=== PATIENT | male | born 1990 | race Caucasian/White ===

== ENCOUNTER 2016-12-02 16:42 | Emergency (ER) | payer BC, OTHER ==
[~2016-12-02] VITALS: Ht 180.3 cm; Wt 71.0 kg
[2016-12-02 16:45] VITALS: Ht 180.3 cm; Wt 71.0 kg
[2016-12-02] MEDS ORDERED: CYCL-319 PO (17:10)
[2016-12-02] MEDS ORDERED: NAPR-260 PO (17:10)
[2016-12-02] MEDS ORDERED: KETOROLAC 30 MG INJ IM STA (17:17)
--- NOTE | 2016-12-02 17:17 | ERD ---
ER Documentation Chief Complaint Date/Time DATE: 12/02/16 TIME: 17:13 Chief Complaint CHRONIC BACK PAIN, HAVING NEW SYMTOMS HPI This patient is a 26-year-old male with past medical history of back pain presenting to the emergency department with acute exacerbation of chronic back pain. The patient states his paraspinal muscles from the C-spine to the L- spine are affected. He was bending over and then stood up too quickly 2 days ago which caused the pain. It was sudden in onset. Pain is been staying constant. No alleviating or exacerbating factors reported. The patient has been taking no medications for relief of symptoms. He denies loss of bowel or bladder function, radiation down the legs, fevers, chills, urinary symptoms, loss of feeling in the lower extremities, or other symptoms. He has been able to ambulate well with no difficulty. ROS All systems reviewed and are negative except as per history of present illness. Medications Home Meds Active Scripts Naproxen* (Naprosyn*) 500 Mg Tablet, 500 MG PO BID Y for PAIN AND/OR INFLAMMATION, #30 TAB Prov:BO BASILIO PA-C 12/02/16 Cyclobenzaprine Hcl* (Cyclobenzaprine Hcl*) 10 Mg Tablet, 10 MG PO TID, #15 TAB Prov:BO BASILIO PA-C 12/02/16 Allergies Allergies: Coded Allergies: Sulfa (Sulfonamide Antibiotics) (Unverified Allergy, Unknown, HIVES, ) PMhx/Soc History of Surgery: No Anesthesia Reaction: No Hx Neurological Disorder: No Hx Respiratory Disorders: No Hx Cardiac Disorders: No Hx Psychiatric Problems: No Hx Miscellaneous Medical Probl: Yes (ADHD , CHRONIC BACK PAIN ) Hx Alcohol Use: Yes Hx Substance Use: Yes (MEDICAL MARIJUANA ) Hx Tobacco Use: Yes Smoking Status: Current some day smoker Physical Exam Vitals Vital Signs Date Time Temp Pulse Resp B/P Pulse Ox O2 Delivery O2 Flow Rate FiO2 12/02/16 16:45 98.0 68 18 134/70 98 Physical Exam Const: Nontoxic, well-appearing male in no acute distress. Head: Atraumatic Eyes: Normal Conjunctiva ENT: Normal External Ears, Nose and Mouth. Neck: Full range of motion..~ No meningismus. Resp: Clear to auscultation bilaterally Cardio: Regular rate and rhythm, no murmurs Abd: Soft, non tender, non distended. Normal bowel sounds Skin: No petechiae or rashes Back: No midline or flank tenderness. Negative straight leg raise bilaterally. There is some tightness palpated to the paraspinal muscles of the lumbar region. Ext: No cyanosis, or edema Neur: Awake and alert. No pronator drift noted. Negative Romberg sign. Cranial nerves intact. Strength and sensation intact in bilateral upper and lower extremities. Psych: Normal Mood and Affect Procedures/MDM 26-year-old male presenting to the emergency department with acute on chronic back pain. Physical examination was negative for signs of paralysis, decreases in strength, cauda equina, epidural abscess, or other emergent back complaints. I did not feel that imaging was indicated in the department at this time, because he has had multiple images of his back in the past. The patient is stable for outpatient management with a prescription for NSAIDs and muscle relaxers. I had a long, detailed discussion with the patient regarding close follow-up with a primary care physician for referral to possible specialist. The patient's questions and concerns were answered in full. He agreed with the discharge plan and diagnosis. He states he will follow-up closely with the primary care physician. Strict ER return parameters were discussed and the patient demonstrated good understanding of information. Departure Diagnosis: Primary Impression: Back pain Back pain location: back pain in unspecified location Chronicity: chronic Back pain laterality: unspecified Qualified Code: M54.9 - Chronic back pain, unspecified back location, unspecified back pain laterality Additional Impression: Back strain Encounter type: initial encounter Qualified Code: S39.012A - Back strain, initial encounter Condition: Fair Patient Instructions: Back Pain (Acute Or Chronic) Referrals: [facility] YOU HAVE RECEIVED A MEDICAL SCREENING EXAM AND THE RESULTS INDICATE THAT YOU DO NOT HAVE A CONDITION THAT REQUIRES URGENT TREATMENT IN THE EMERGENCY DEPARTMENT. FURTHER EVALUATION AND TREATMENT OF YOUR CONDITION CAN WAIT UNTIL YOU ARE SEEN IN YOUR DOCTORS OFFICE WITHIN THE NEXT 1-2 DAYS. IT IS YOUR RESPONSIBILITY TO MAKE AN APPOINTMENT FOR FOLOW-UP CARE. IF YOU HAVE A PRIMARY DOCTOR --you should call your primary doctor and schedule an appointment IF YOU DO NOT HAVE A PRIMARY DOCTOR YOU CAN CALL OUR PHYSICIAN REFERRAL HOTLINE AT IF YOU CAN NOT AFFORD TO SEE A PHYSICIAN YOU CAN CHOSE FROM THE FOLLOWING [facility] [address] [facility] [address] [facility] [address] [facility] [address] [facility] [address] [facility]. [facility] [address] [place] Additional Instructions: Follow up with your PCP within the next 1-3 days for a repeat evaluation. If you require a referral to a specialist, your Primary Care Provider may be able to provide this for you. In most patient cases, a referral is not required. If you have further questions regarding this matter, please ask your Primary Care Provider. Return the the emergency department immediately if symptoms worsen or change. If you have any questions regarding medications, ask your pharmacist or us before you leave. If any adverse reactions, occur while taking your medications, discontinue the treatment and return to the emergency department immediately. If any new or worsening symptoms, uncontrolled fevers, or other unexplained symptoms occur, return to the emergency department immediately. Take your medications as directed, and complete the entire course of treatment. BO BASILIO PA-C Dec 02, 2016 17:16
== END 2016-12-02 17:43 | disposition home or self-care (01) ==
LOC: FTE 16:42
DX: S39.012A Strain of muscle, fascia and tendon of lower back, initial encounter (principal); F17.210 Nicotine dependence, cigarettes, uncomplicated; X50.1XXA Overexertion from prolonged static or awkward postures, initial encounter; Y92.9 Unspecified place or not applicable
CPT/HCPCS: 96372; J1885